=== PATIENT | female | born 1960 | race Caucasian/White ===

== ENCOUNTER → 2022-09-20 08:52 | Outpatient (CLI) | payer OTHER, SELFPAY ==
[2022-09-20 09:35] LABS: Add Manual Diff / Slide Review NO; Basophils Absolute Auto 0 /uL (0-100); Eosinophils Absolute Auto 0 /uL (0-450); Eosinophils Percent Auto 0.9 % (2-4); Hematocrit 41.2 % (36-46); Hemoglobin 14.5 g/dL (12.0-16.0); Lymphocytes Absolute Auto 1300 /uL (1100-4500); Lymphocytes Percent Auto 27.8 % (25-40); Mean Corpuscular HGB Conc 35.1 % (30-36); Mean Corpuscular Hemoglobin 31.6 PG (26-34); Monocytes Absolute Auto 300 /uL (0-900); Monocytes Percent Auto 7.1 % (3-14); Neutrophils Absolute Auto 2800 /uL (1500-7000); Neutrophils Percent Auto 63.2 % (50-75); Platelet Count 268 X10^3/uL (150-400); Red Blood Cell Count 4.58 X10^6/uL (4.0-5.2); Red Cell Distribution Width 13.5 % (11.6-14.8); White Blood Cell Count 4.5 X10^3/uL (4.5-11.0)
[2022-09-20 10:00] LABS: Alanine Aminotransferase 21 IU/L (<35); Albumin 4.4 g/dL (3.5-5.0); Albumin Globulin Ratio 1.1 (1.0-2.8); Alkaline Phosphatase 65 U/L (38-126); Aspartate Aminotransferase 24 IU/L (14-36); BUN Creatinine Ratio 18.7 (6-22); Bilirubin Total 0.6 mg/dL (0.2-1.3); Blood Urea Nitrogen 17 mg/dL (7-17); Calcium 9.4 mg/dL (8.4-10.2); Carbon Dioxide 26 mmol/L (22-32); Chloride 102 mmol/L (98-107); Cholesterol 218 mg/dL (140-199); Estimated Glomerular Filt Rate > 60 mL/min (>60); Globulin 4.1 g/dL (1.7-4.1); Glucose 101 mg/dL (80-110); HDL Cholesterol 97 mg/dL (40-60); HEMOLYSIS < 15 (0-50); LDL Cholesterol Calculated 112 mg/dL (<100); Potassium 4.3 mmol/L (3.4-5.1); Sodium 136 mmol/L (137-145); Total Protein 8.5 g/dL (6.3-8.2); Triglycerides 46 mg/dL (35-150)
[2022-09-20 10:14] LABS: Vitamin D 25 Hydroxy (D3) 82.1 ng/mL (30.0-100.0)
[2022-09-20 10:19] LABS: Thyroid Stimulating Hormone 2.58 uIU/mL (0.47-4.68)
[2022-09-20 10:48] LABS: HIV 1 & 2 Ab/Ag 4th Gen Combo NEGATIVE (NEGATIVE); Hep C Virus Ab w/Reflex Quant NEGATIVE s/c (NEGATIVE)
== END ==
PROVIDERS: PCP Student in an Organized Health Care Education/Training Program; Referring Provider Student in an Organized Health Care Education/Training Program; Visit Provider Student in an Organized Health Care Education/Training Program
DX: Z00.00 Encounter for general adult medical examination without abnormal findings (principal); M85.80 Other specified disorders of bone density and structure, unspecified site; Z11.59 Encounter for screening for other viral diseases; E03.9 Hypothyroidism, unspecified; Z11.4 Encounter for screening for human immunodeficiency virus [HIV]
CPT/HCPCS: 36415; 80053; 80061; 82306; 84443; 85025; 86803; 87389

== ENCOUNTER 2022-10-11 13:43 | Day surgery (SDC) | payer OTHER, SELFPAY ==
[2022-10-11 14:00] VITALS: BP 122/73; PULSE 81; RESP 18; TEMP 36.8; O2SAT 98; BMI 27.1
[2022-10-11 14:04] VITALS: BMI 27.1
[2022-10-11] MEDS: LACTATED RINGERS 1,000 ML 125 ML IV (14:18)
[2022-10-11 15:05] VITALS: BMI 27.1
--- NOTE | 2022-10-11 16:30 | PM.HP.1 ---
History of Present Illness History of Present Illness Date Patient Seen: 10/11/22 Time Patient Seen: 16:30 Chief complaint: SDC Narrative: 62-year-old female presents today for screening colonoscopy. She is had 2 prior colonoscopies 1 more recently at [facility]. This was on December 16, 2016 and there were no polyps. She does have a father who got colon cancer in his 70s. Her previous colonoscopy was in 2009 and there was a small hyperplastic polyp that was found. She provides a detailed history. She has no further questions or concerns and has no symptoms of bleeding changes in bowels or abdominal cramps. [facility] Social History household members: spouse Smoking Status: Never smoker alcohol intake: current Meds Home Medications and Allergies Home Medications Medication Instructions Recorded Confirmed Type levothyroxine 50 mcg PO DAILY 10/11/22 10/11/22 History spironolactone 100 mg PO DAILY 10/11/22 10/11/22 History zolpidem 5 mg PO DAILY PRN Insomnia 10/11/22 10/11/22 History Allergies Allergy/AdvReac Type Severity Reaction Status Date / Time codeine Allergy Nausea Verified 10/11/22 13:57 indomethacin Allergy Muscle Pain Verified 10/11/22 13:57 Sulfa (Sulfonamide Allergy Rash Verified 10/11/22 13:57 Antibiotics) Exam Vital Signs (past 8 hours): - 10/11/22 14:00 Temperature 98.3 F Pulse Rate 81 Respiratory Rate 18 Blood Pressure 122/73 Pulse Oximetry 98 Oxygen Delivery Method Room Air Oxygen Delivery Method Room Air Const General: cooperative, healthy appearing and comfortable Nutritional Appearance: average body habitus and well nourished [facility] Head: normal to inspection Eyes General: appearance normal, both eyes and all related structures Resp Effort & Inspection: normal respiratory effort and able to speak in complete sentences Cardio Pulses: radial pulses present GI Inspection: normal to inspection Palpation: soft and No tender Extrem General: normal to inspection Assessment & Plan Assessment and plan (1) Family history of colon cancer in father: Status: Acute (2) Screening for colon cancer: Status: Acute Assessment & Plan narrative: Presents today for screening colonoscopy I discussed the risks benefits and alternatives including but not limited to perforation of the colon and an incomplete exam she fully understands these risks and would like to proceed.
--- NOTE | 2022-10-11 17:05 | PM.OP.COLON ---
Operative Date/Time/Diagnoses Date of procedure: 10/11/22 Time of procedure: 17:05 Pre-op diagnosis: Family history of colon cancer, screening Post-op diagnosis: same Procedure & Clinicians Study performed: Colonoscopy Same procedure as scheduled: Yes Indications: Family history of colon cancer and colon cancer screening Surgeon: Breanna Ricketts Procedure Notes Procedure in detail: Patient was taken to the endoscopy suite and placed in a left lateral decubitus position. A time-out was performed. With the help of anesthesiologist conscious sedation was induced and monitored throughout the case. A digital rectal exam was performed and there were no masses or strictures. The colonoscope was introduced into the anal canal and advanced through to the cecum. A photograph of the appendiceal orifice was obtained. The bowel prep was excellent [place] bowel prep score of 3. The scope was then withdrawn for a total of 12 minutes and no polyps were seen. The scope was then retroflexed and a photograph of the internal hemorrhoidal piles was obtained. They appeared normal. Specimen(s): none sent Complications: none Post-procedure Recommendations: Colonoscopy in 5 years
[2022-10-11 17:07] VITALS: BP 97/55; PULSE 60; RESP 14; TEMP 35.7; O2SAT 95
[2022-10-11 17:12] VITALS: BP 96/56; PULSE 58; RESP 19; O2SAT 96
[2022-10-11 17:17] VITALS: BP 99/61; PULSE 64; RESP 12; O2SAT 97
[2022-10-11 17:21] VITALS: BP 99/61; PULSE 70; RESP 19; O2SAT 100
== END 2022-10-11 17:29 | disposition home or self-care (01) ==
PROVIDERS: PCP Student in an Organized Health Care Education/Training Program; Referring Provider Surgery; Visit Provider Surgery
PROC: 0DJD8ZZ Inspection of Lower Intestinal Tract, Via Natural or Artificial Opening Endoscopic (ICD-10-PCS; CPT 45378; principal; 2022-10-11 15:30)
DX: Z12.11 Encounter for screening for malignant neoplasm of colon (principal); Z80.0 Family history of malignant neoplasm of digestive organs
CPT/HCPCS: 45378; J2704